=== PATIENT | female | born 1980 | race Caucasian/White ===

== ENCOUNTER 2025-07-21 14:23 | Emergency (ER) | payer MEDICAID, SELFPAY ==
--- NOTE | 2025-07-21 14:35 | XR_ITS ---
FINAL REPORT CLINICAL HISTORY: short of breath FINDINGS: A portable view of the chest was obtained. Cardiac and mediastinal silhouettes are within normal limits. The lungs are clear. There is no pleural effusion or pneumothorax. IMPRESSION: No acute process on this portable exam. Reviewed, Interpreted and Dictated by Mercedes White MD Transcribed by Daja Calderon Authenticated and . [facility]
[2025-07-21 14:36] VITALS: BP 134/81; PULSE 96; RESP 16; TEMP 36.7; O2SAT 96; BMI 40.3
--- NOTE | 2025-07-21 14:38 | HMH.EDGENADL ---
Discharge Plan Disposition Patient Disposition: Home, Self-Care Referrals Follow up/Referrals: Daniel Healy MD [Referring, Medical] - See instructions Print Language Print Language: Lithuanian Discharge ED Provider: Kalyan Escoto General Adult HPI <Jeanette Belcher (ED), [employer] - Last Filed: 07/21/25 14:54> General Chief complaint: Upper Respiratory Infection Stated complaint: coughing, spitting up mucus Time Seen by Provider: 07/21/25 14:27 History of Present Illness HPI narrative: 44-year-old female presents to the ED today for complaint of 3 weeks of coughing up mucus. She has been using [id number]-[id number] meds that have not been helping. She has had no fevers. She does feel like she has been wheezing and having lung pain . She says she has had that lung pain over the past week but does not have it today. She says she has quit smoking for the last couple of days trying to get this to go away. She tells me that she feels like she might have asthma. She has never been diagnosed with this. Related Data Previous Rx's ?Medication ?Instructions ?Recorded smnzwbcwbaxyuzc-vgzqymsbqrzsmgf-QI 5 ml PO Q6H PRN sinus symptoms 07/21/25 2 mg-30 mg-10 mg/5 mL oral syrup #200 mL (Bromfed DM) Allergies Allergy/AdvReac Type Severity Reaction Status Date / Time No Known Allergies Allergy Verified 07/21/25 14:38 PFSH <Jeanette Belcher (ED), [employer] - Last Filed: 07/21/25 14:54> [facility] Disclaimer: The information contained in this section may have been updated after the patient was seen, as this information can be updated by other users. Social History (Updated 07/21/25 @ 14:54 by Jeanette Belcher (ED), [employer]) Smoking Status: Current every day smoker alcohol intake: former current occupational status: other Travel in the last 8 weeks?: None Have you lived/traveled outside [place] in past 30 days?: No Contact w/someone who lives/traveled outside [place] past 30 days?: No Exposure to someone with infectious disease in past 14 days?: No Do you have a fever (greater than 100.4 F or 38 C)?: No Have you tested positive for COVID-19?: No Exposed to someone with COVID-19 in past 14 days?: No Do you have a sore throat?: No Do you have a cough?: No Do you have any weakness?: No Do you have any diarrhea?: No Are you experiencing any unusual bleeding?: No Do you have any muscle aches/pain?: No Do you have any abdominal pain?: No Are you experiencing loss of taste or smell?: No <Jeanette Belcher (ED), [employer] - Last Filed: 07/21/25 14:54> ROS Obtained: Yes Systems reviewed as appropriate & no additional complaints except as documented Constitutional Constitutional: Reports as per HPI Physical Exam <Jeanette Belcher (ED), [employer] - Last Filed: 07/21/25 14:54> General General appearance: alert and in no apparent distress Head Head exam: normocephalic Eye Eye exam: Present PERRL and EOMI ENT ENT exam: Present normal oropharynx Neck Neck exam: Present full ROM and trachea midline Respiratory Respiratory exam: Present normal lung sounds bilaterally Cardiovascular Cardiovascular exam: Present normal rhythm, normal heart sounds, +S1 and +S2 Abdominal Exam Abdominal exam: Present soft and normal bowel sounds Extremities Exam Extremities exam: Present full ROM and normal capillary refill Neurological Exam Neurological exam: Present alert and oriented X3 Skin Skin exam: Present warm and dry Medical Decision Making <Jeanette Belcher (ED), [employer] - Last Filed: 07/21/25 14:54> Medical Records Screening: Per USPSTF and CDC recommendations, given the prevalence of disease in our region, it is our hospital?s policy to screen for HIV and viral Hepatitis for all patients aged 18 and over and those with ongoing risk factors. Jonathan Inquiry Pt receiving controlled substance: No Jonathan was queried for this patient: No Vital Signs: 07/21/25 14:36 Temperature 98.0 F Temperature Source Oral Pulse Rate [Right Radial] 96 H Respiratory Rate 16 Blood Pressure [Right Arm] 134/81 Blood Pressure Mean [Right Arm] 98 Blood Pressure Source [Right Arm] Automatic Cuff Blood Pressure Position [Right Arm] Supine 02 Sat by Pulse Oximetry 96 Oxygen Delivery Method Room Air Orders (Tests/Meds): ED MEDICATIONS Discontinued Medications Generic Name Dose Route Start Last Admin Trade Name Freq PRN Reason Stop Dose Admin Dexamethasone Sodium Phosphate 8 mg 07/21/25 14:35 07/21/25 14:52 Dexamethasone 4mg/Ml 5ml Mdv IM 07/21/25 14:36 8 mg ONCE ONE Administration ORDERS Category Date Time Status Chest XR -- portable [XR chest portable] Stat Exams 07/21/25 14:35 Taken Full Resp Panel w/COVID ([facility]) Routine Lab 07/21/25 14:30 Received Medical Decision Narrative: patient is a 44-year-old female presenting to the emergency department for evaluation of 3 weeks of coughing. Patient is hemodynamically stable and nontoxic-appearing upon arrival, afebrile. Differential diagnosis includes viral illness, pneumonia, among others. Workup will be conducted with specific imaging. Chest x-ray read by Dr. Escoto as nothing acute. Radiology allergy read not back at this time but will call patient if it is different. Patient given instructions to see primary care in follow-up. She says she already has a follow-up appointment. Will send medications to the clinic. Patient safe for discharge home. <Kalyan Escoto MD - Last Filed: 07/21/25 14:56> Vital Signs: 07/21/25 14:36 Temperature 98.0 F Temperature Source Oral Pulse Rate [Right Radial] 96 H Respiratory Rate 16 Blood Pressure [Right Arm] 134/81 Blood Pressure Mean [Right Arm] 98 Blood Pressure Source [Right Arm] Automatic Cuff Blood Pressure Position [Right Arm] Supine 02 Sat by Pulse Oximetry 96 Oxygen Delivery Method Room Air Orders (Tests/Meds): ED MEDICATIONS Discontinued Medications Generic Name Dose Route Start Last Admin Trade Name Freq PRN Reason Stop Dose Admin Dexamethasone Sodium Phosphate 8 mg 07/21/25 14:35 07/21/25 14:52 Dexamethasone 4mg/Ml 5ml Mdv IM 07/21/25 14:36 8 mg ONCE ONE Administration ORDERS Category Date Time Status Chest XR -- portable [XR chest portable] Stat Exams 07/21/25 14:35 Taken Full Resp Panel w/COVID ([facility]) Routine Lab 07/21/25 14:30 Received Medical Decision Narrative: patient is a 44-year-old female presenting to the emergency department for evaluation of 3 weeks of coughing. Patient is hemodynamically stable and nontoxic-appearing upon arrival, afebrile. Differential diagnosis includes viral illness, pneumonia, among others. Workup will be conducted with specific imaging. Chest x-ray read by Dr. Escoto as nothing acute. Radiology allergy read not back at this time but will call patient if it is different. Patient given instructions to see primary care in follow-up. She says she already has a follow-up appointment. Will send medications to the clinic. Patient safe for discharge home. Kalyan Escoto MD: I was consulted by the OLIVA, and we discussed the complexity of the problems being addressed. I approved the treatment and management plan for this patient's care in the emergency department, thus performing a substantive portion of the medical decision making. Critical Care <Jeanette Belcher (ED), [employer] - Last Filed: 07/21/25 14:54> Critical Care Time Critical Care Time: No
[2025-07-21 14:47] LABS: Adenovirus,PCR Not Detected (NotDetected); Chlamydophila Pneumoniae, PCR Not Detected (NotDetected); Coronavirus 19, PCR Not Detected (NotDetected); Coronovirus HKU1,PCR Not Detected (NotDetected); Influenza A, PCR Not Detected (NotDetected); Influenza AH1, 2009 Not Detected (NotDetected); Influenza AH1, PCR Not Detected (NotDetected); Influenza AH3,PCR Not Detected (NotDetected); Influenza B, PCR Not Detected (NotDetected); Mycoplasma Pneumoniae, PCR Not Detected (NotDetected); Parainfluenza 1, PCR Not Detected (NotDetected); Parainfluenza 2, PCR Not Detected (NotDetected); Parainfluenza 3, PCR Not Detected (NotDetected); Parainfluenza 4, PCR Not Detected (NotDetected)
[2025-07-21] MEDS: DEXAMETHASONE 4MG/ML 5ML MDV 8 MG IM (14:52)
[2025-07-21 15:03] VITALS: BP 125/78; PULSE 78; RESP 20; TEMP 36.6; O2SAT 98
== END 2025-07-21 15:03 | disposition home or self-care (01) ==
PROVIDERS: Nurse Practitioner; Emergency Provider Emergency Medicine; PCP Internal Medicine
DX: J06.9 Acute upper respiratory infection, unspecified (principal); R05.1 Acute cough
CPT/HCPCS: 0223U; 71045; 96372; 99283; J1100